=== PATIENT | male | born 1950 | race Caucasian/White ===

== ENCOUNTER 2024-09-28 05:56 | Outpatient (RCR) | payer OTHER, SELFPAY | END 2024-09-28 23:59 | disposition home or self-care (01) | LOC: RPT 05:56 | PROVIDERS: ATTENDING PHYSICIAN Internal Medicine; FAMILY PHYSICIAN Internal Medicine | DX: M54.59 Other low back pain (principal); Z73.6 Limitation of activities due to disability; G62.9 Polyneuropathy, unspecified | CPT/HCPCS: 97112; 97162 ==

== ENCOUNTER 2024-10-28 12:04 | Outpatient (RCR) | payer OTHER, SELFPAY | END 2024-10-28 23:59 | disposition home or self-care (01) | LOC: RPT 12:04 | PROVIDERS: ATTENDING PHYSICIAN Internal Medicine; FAMILY PHYSICIAN Internal Medicine | DX: M54.59 Other low back pain (principal); Z73.6 Limitation of activities due to disability; G62.9 Polyneuropathy, unspecified | CPT/HCPCS: 97010; 97110 ==

== ENCOUNTER 2024-11-23 14:25 | Outpatient (RCR) | payer OTHER, SELFPAY | END 2024-11-23 23:59 | disposition home or self-care (01) | LOC: RPT 14:25 | PROVIDERS: ATTENDING PHYSICIAN Internal Medicine; FAMILY PHYSICIAN Internal Medicine | DX: M54.59 Other low back pain (principal); Z73.6 Limitation of activities due to disability; G62.9 Polyneuropathy, unspecified | CPT/HCPCS: 97010; 97110; 97112 ==

== ENCOUNTER 2024-12-07 14:36 | Outpatient (RCR) | payer OTHER, SELFPAY | END 2024-12-07 23:59 | disposition home or self-care (01) | LOC: RPT 14:36 | PROVIDERS: ATTENDING PHYSICIAN Internal Medicine; FAMILY PHYSICIAN Internal Medicine | DX: M54.59 Other low back pain (principal); Z73.6 Limitation of activities due to disability; G62.9 Polyneuropathy, unspecified | CPT/HCPCS: 97110 ==